=== PATIENT | female | born 1960 | race Two or more races ===

== ENCOUNTER 2025-01-17 09:00 | Outpatient (CLI) | payer OTHER ==
[~2025-01-17] VITALS: Ht 165.1 cm; Wt 75.7 kg
[2025-01-17 09:39] VITALS: BP 108/72
[2025-01-17 09:54] LABS: HEMATOCRIT 43.2 % (36.0-45.00); HEMOGLOBIN 14.2 g/dL (12.0-15.00); MEAN CELL VOLUME 89.2 fL (80.00-100.00); MEAN CORPUSCULAR HEMOGLOBIN 29.3 pg (27.00-32.0); MEAN CORPUSCULAR HGB CONC 32.8 g/dl (32.0-36.0); PLATELET COUNT 262 K/uL (150-450); RED BLOOD COUNT 4.84 M/uL (4.00-6.00); RED CELL DISTRIBUTION WIDTH 13.9 % (11.5-14.5)
[2025-01-17 10:06] LABS: COL EPI 122 SECONDS (82-175)
[2025-01-17 10:20] LABS: PH,URINE 5.5 (5.0-8.0); URINE APPEARANCE Clear; URINE BILIRRUBIN Negative (NEGATIVE); URINE BLOOD Trace; URINE COLOR Yellow; URINE GLUCOSE Negative (NEGATIVE); URINE KETONE Negative (NEGATIVE); URINE LEUKOCYTE Trace; URINE NITRATE Negative; URINE PROTEIN Negative (NEGATIVE); URINE UROBILINOGEN 0.2 E.U./dl
[2025-01-17 10:21] LABS: URINE BACTERIA 61.1 uL (0.0-1933); URINE EPITHELIAL CELLS 8.8 uL (0.0-38.8); URINE RBC 5.4 uL (0.0-20.8)
[2025-01-17 10:27] LABS: INR 0.98; PROTHROMBIN TIME 10.7 SECONDS (9.0-11.5)
[2025-01-17 10:47] LABS: ALBUMIN 3.7 gm/dL (3.4-5.0); BILIRUBIN TOTAL 0.4 mg/dL (0.3-1.2); CALCIUM 9.1 mg/dL (8.5-10.1); CREATININE SERUM 0.88 mg/dL (0.55-1.02); GFR 64.09; GLOBULINA 3.4 G/DL (2.4-3.5); POTASSIUM 4.41 mEq/L (3.5-5.1); TOTAL PROTEIN 7.1 gm/dL (6.4-8.2)
== END 2025-01-17 12:11 | disposition home or self-care (01) ==
LOC: LAB 09:00
PROVIDERS: ATTEND Orthopaedic Surgery
DX: I10 Essential (primary) hypertension (principal); Z76.89 Persons encountering health services in other specified circumstances; D64.9 Anemia, unspecified; D68.8 Other specified coagulation defects; N39.0 Urinary tract infection, site not specified; E88.9 Metabolic disorder, unspecified; E11.8 Type 2 diabetes mellitus with unspecified complications; Z22.322 Carrier or suspected carrier of Methicillin resistant Staphylococcus aureus

== ENCOUNTER 2025-01-27 10:30 | Inpatient (IN) | payer OTHER ==
[~2025-01-27] VITALS: Ht 152.4 cm; Wt 76.2 kg
[2025-02-01] MEDS ORDERED: LIDOCAINE HCL 1%/EPINEPHRINE 20ML VIAL IJ ONE (09:30)
[2025-02-01] MEDS ORDERED: VANCOMYCIN HCL 1,000 MG VIAL IR ONE (09:30)
[2025-02-01] MEDS ORDERED: KETOROLAC TROMETHAMINE 60 MG VIAL IM NR (09:30)
[2025-02-01] MEDS ORDERED: EPINEPHRINE HCL/PF 1 MG/ML AMPUL IR SCH (09:30)
[2025-02-01] MEDS ORDERED: BUPIVACAINE HCL 30 ML VIAL IJ ONE (09:30)
[2025-02-01] MEDS ORDERED: CEFAZOLIN SODIUM 1,000 MG VIAL IV SCH ×2 (09:30→17:00)
[2025-02-01] MEDS ORDERED: TRANEXAMIC ACID 100MG/1ML (1000MG) AMPUL IV ONE ×2 (09:30)
[2025-02-01] MEDS ORDERED: SODIUM CHLORIDE 0.45 % 1,000 ML IV SCH (11:00)
[2025-02-01] MEDS ORDERED: MEPERIDINE HCL/PF 50 MG/ML VIAL IM PRN (11:00)
[2025-02-01] MEDS ORDERED: ONDANSETRON HCL 2 MG/ML VIAL IV PRN (11:00)
[2025-02-01] MEDS ORDERED: ONDANSETRON 4 MG TAB.RAPDIS PO PRN (11:00)
[2025-02-01] MEDS ORDERED: PROMETHAZINE HCL 50 MG/ML AMPUL IM PRN (11:00)
[2025-02-01] MEDS ORDERED: TRAMADOL HCL 50 MG TABLET PO PRN (11:00)
[2025-02-01] MEDS ORDERED: MORPHINE SULFATE 4 MG/ML VIAL IV ONE (12:50)
[2025-02-01] MEDS ORDERED: ACETAMINOPHEN 325 MG TABLET PO SCH (13:00)
[2025-02-01] MEDS ORDERED: KETOROLAC TROMETHAMINE 10 MG TABLET PO SCH (13:00)
[2025-02-01] MEDS ORDERED: CELECOXIB 200 MG CAPSULE PO SCH (17:00)
[2025-02-01] MEDS ORDERED: PANTOPRAZOLE SODIUM 40 MG TABLET.DR PO SCH (17:00)
[2025-02-01 18:18] VITALS: BP 104/66; O2SAT 95
[2025-02-02 00:45] VITALS: BP 105/60; O2SAT 98
[2025-02-02 06:49] LABS: HEMATOCRIT 30.6 % (36.0-45.00); HEMOGLOBIN 10.4 g/dL (12.0-15.00); MEAN CORPUSCULAR HEMOGLOBIN 29.8 pg (27.00-32.0); MEAN CORPUSCULAR HGB CONC 33.9 g/dl (32.0-36.0); PLATELET COUNT 210 K/uL (150-450); RED BLOOD COUNT 3.47 M/uL (4.00-6.00); RED CELL DISTRIBUTION WIDTH 13.9 % (11.5-14.5)
[2025-02-02] MEDS ORDERED: RIVAROXABAN 10 MG TAB PO SCH (09:00)
[2025-02-02 09:02] VITALS: BP 96/67; O2SAT 96
[2025-02-02 12:23] LABS: ALBUMIN 2.9 gm/dL (3.4-5.0); BILIRUBIN TOTAL 0.86 mg/dL (0.3-1.2); CALCIUM 8.3 mg/dL (8.5-10.1); CREATININE SERUM 0.88 mg/dL (0.55-1.02); GFR 64.09; GLOBULINA 2.8 G/DL (2.4-3.5); POTASSIUM 4.57 mEq/L (3.5-5.1); TOTAL PROTEIN 5.7 gm/dL (6.4-8.2)
[2025-02-02 16:34] VITALS: BP 100/63; O2SAT 94
[2025-02-03 00:58] VITALS: BP 105/69; O2SAT 98
[2025-02-03 06:09] LABS: HEMATOCRIT 28.8 % (36.0-45.00); HEMOGLOBIN 9.7 g/dL (12.0-15.00); MEAN CELL VOLUME 88.8 fL (80.00-100.00); MEAN CORPUSCULAR HEMOGLOBIN 29.9 pg (27.00-32.0); MEAN CORPUSCULAR HGB CONC 33.7 g/dl (32.0-36.0); PLATELET COUNT 189 K/uL (150-450); RED BLOOD COUNT 3.24 M/uL (4.00-6.00); RED CELL DISTRIBUTION WIDTH 14.7 % (11.5-14.5)
[2025-02-03 08:49] VITALS: BP 97/54; O2SAT 98
[2025-02-03] MEDS ORDERED: SENNA/DOCUSATE SODIUM 1 TAB TABLET PO SCH (09:00)
== END 2025-02-03 13:47 | disposition home or self-care (01) | DRG 470 ==
LOC: SURH 02-01 05:18 → O/R 02-01 05:18 → SURH 02-01 07:00
PROVIDERS: ADMIT Orthopaedic Surgery; ATTEND Orthopaedic Surgery
PROC: 0SRB01Z Replacement of Left Hip Joint with Metal Synthetic Substitute, Open Approach (ICD-10-PCS; principal; 2025-02-01 07:00)
DX: M16.12 Unilateral primary osteoarthritis, left hip (principal); Z96.642 Presence of left artificial hip joint